=== PATIENT | female | born 1970 | race Caucasian/White ===

== ENCOUNTER 2017-11-10 17:51 | Emergency (ER) | payer OTHER ==
[~2017-11-10] VITALS: Ht 167.6 cm; Wt 81.6 kg
[~2017-11-10 17:51] MED LIST: BUPR-160 PO; GABA-560 PO; MEDR2.5T PO; OLAN2.5T1 PO; OXCA150T2 PO; TOP100 PO; [UNRECOGNIZED DRUG - CODE] PO
[2017-11-10 17:57] VITALS: BP 119/72
[2017-11-10 18:00] VITALS: BP 119/72
--- NOTE | 2017-11-10 18:00 | NUR ---
PATIENT C/O ABD PAIN TODAY, REQUESTING TO HAVE XRAY DONE TO CHECK HER "LAPAROSCOPIC BAND." PT IS TALKING TO HER SELF, LIP SMACKING, TANGENTIAL, IMPULSIVE JERKING MOVEMENTS. DENIES SI/HI OR AVH. AXO TO NAME AND ADDRESS. PATIENT VERBALLY AGGRESSIVE WITH STAFF. GETTING OFF OF BED TO SHOUT AT STAFF. VSS; PATIENT POSITIONED FOR COMFORT; HOB ELEVATED; BEDRAILS UP X2; BED DOWN. ER MD MADE AWARE OF PT STATUS.
--- NOTE | 2017-11-10 18:07 | NUR ---
Patient ambulated to bed 11. RN evaluating patient at bedside.
--- NOTE | 2017-11-10 18:07 | NUR ---
DR VARGAS NOTIFIED OF PTS CONDITION. AT BEDSIDE TO EVAL
--- NOTE | 2017-11-10 18:26 | NUR ---
PATIENT WALKED OUT OF ER
--- NOTE | 2017-11-10 18:29 | NUR ---
PATIENT ELOPED FROM FACILITY. ORDERS NOT CARRIED OUT. DR. RIGGS NOTIFIED.
== END 2017-11-10 18:29 | disposition left against medical advice (07) ==
LOC: MED 17:51
DX: R45.1 Restlessness and agitation (principal); R10.9 Unspecified abdominal pain; Z88.8 Allergy status to other drugs, medicaments and biological substances; Z88.5 Allergy status to narcotic agent; Z79.899 Other long term (current) drug therapy
CPT/HCPCS: 99281